=== PATIENT | male | born 1980 | race Caucasian/White ===

== ENCOUNTER 2016-07-28 05:26 | Emergency (ER) | payer OTHER ==
[~2016-07-28] VITALS: Ht 190.5 cm; Wt 111.1 kg
[2016-07-28] MEDS ORDERED: fentaNYL INJECTION 100 MCG/2 ML AMP IVP STA (05:33)
[2016-07-28] MEDS ORDERED: HYDR25TA4 PO (05:37)
[2016-07-28] MEDS ORDERED: FLUT9.9S NS (05:37)
[2016-07-28] MEDS ORDERED: GUAI600T43 PO (05:37)
[2016-07-28] MEDS ORDERED: LISI10TA2 PO (05:37)
[2016-07-28] MEDS ORDERED: BISO1TAB3 PO (05:37)
--- NOTE | 2016-07-28 05:40 | ED Fall/Injury ---
General Chief Complaint: Trauma-Non Activation Stated Complaint: FALL,L SHOULDER PAIN Nursing Triage Note: patient reports was walking outside of work and tripped on rope and landed on L outstreched arm. Patient reports L shoulder pain Source: patient Exam Limitations: no limitations (ALEXY BADILLO MD) History of Present Illness Time seen by provider: 05:25 Initial Comments Here by EMS with report of left shoulder pain. Patient was apparently closing a receiving door at [facility] and was walking backwards with the rope as he was closing the door and tripped over the rope. He fell and hit his left shoulder on metal shelving and then caught himself with his left hand. He immediately had severe left shoulder pain. Denies hitting his head. Denies loss of consciousness. He does report hitting his left knee but states that that is no problem at all and is not concerned about it. He has never fractured or dislocated his shoulder previously. Occurred: just prior to arrival Severity: moderate Injuries/Pain Location: upper extremity Context: tripped Loss of Consciousness: no loss of consciousness Modifying Factors: Worse With Movement Associated Symptoms (Fall): No Abdominal Pain, No Chest Pain, No Nausea/ Vomiting (ALEXY BADILLO MD) Allergies and Home Medications Allergies Coded Allergies: iodine (Verified Allergy, Unknown, 07/28/16) Home Medications Bisoprolol Fumarate/Hctz 1 Each Tablet, 1 EACH PO DAILY, (Reported) Fluticasone Propionate 9.9 Ml [place].susp, 9.9 ML NS, (Reported) Guaifenesin 600 Mg Tab.er.12h, 600 MG PO, (Reported) Hydrochlorothiazide 25 Mg Tablet, 25 MG PO, (Reported) Hydrocodone/Acetaminophen 1 Each Tablet, 1-2 EACH PO Q4H PRN for PAIN, #30 Prescribed by: HIPOLITO DOOLEY on 07/28/16 1131 Lisinopril 10 Mg Tablet, 10 MG PO DAILY, (Reported) Constitutional: see HPI, No chills, No fever Eyes: No Symptoms Reported Ears, Nose, Mouth, Throat: no symptoms reported Respiratory: no symptoms reported Cardiovascular: no symptoms reported Gastrointestinal: no symptoms reported Musculoskeletal: see HPI, joint pain, joint swelling, muscle pain Skin: no symptoms reported (ALEXY BADILLO MD) All Other Systems Reviewed Negative Unless Noted: Yes (ALEXY BADILLO MD) Past Atehyhd-Bnvzlg-Ixnmbr Hx Patient Social History Alcohol Use: Rarely Uses Recreational Drug Use: No Smoking Status: Never a Smoker Recent Foreign Travel: No Contact w/Someone Who Travel: No Recent Infectious Disease Expo: No Recent Hopitalizations: No (ALEXY BADILLO MD) Seasonal Allergies Seasonal Allergies: No (ALEXY BADILLO MD) Surgeries HX Surgeries: Yes (lithotripsy) (ALEXY BADILLO MD) Respiratory Hx Respiratory Disorders: No (ALEXY BADILLO MD) Cardiovascular Hx Cardiac Disorders: Yes Cardiac Disorders: Hypertension (ALEXY BADILLO MD) Neurological Hx Neurological Disorders: No (ALEXY BADILLO MD) Genitourinary Hx Genitourinary Disorders: Yes Genitourinary Disorders: Kidney Stones (ALEXY BADILLO MD) Gastrointestinal Hx Gastrointestinal Disorders: No (ALEXY BADILLO MD) Musculoskeletal Hx Musculoskeletal Disorders: No (ALEXY BADILLO MD) Endocrine Hx Endocrine Disorders: No (ALEXY BADILLO MD) HEENT HX ENT Disorders: No (ALEXY BADILLO MD) Cancer Hx Cancer: No (ALEXY BADILLO MD) Psychosocial Hx Psychiatric Problems: No (ALEXY BADILLO MD) Integumentary HX Skin/Integumentary Disorder: No (ALEXY BADILLO MD) Blood Transfusions Hx Blood Disorders: No (ALEXY BADILLO MD) Reviewed Nursing Assessment Reviewed/Agree w Nursing PMH: Yes (ALEXY BADILLO MD) Family Medical History Significant Family History: No Pertinent Family Hx (ALEXY BADILLO MD) Physical Exam Vital Signs Vital Sign - Last 12Hours 07/28/16 07/28/16 07/28/16 05:28 08:44 11:20 Temp 98.4 Pulse 71 Resp 18 B/P (MAP) 146/73 Pulse Ox 98 O2 Delivery Nasal Cannula O2 Flow Rate 2 (HIPOLITO DE LA CRUZ MD) Vital Signs Capillary Refill : Less Than 3 Seconds (ALEXY BADILLO MD) General Appearance: WD/WN, moderate distress (left shoulder pain) HEENT: PERRL/EOMI, pharynx normal Neck: non-tender, full range of motion, supple Cardiovascular: regular rate, rhythm, no murmur Respiratory: lungs clear, normal breath sounds Gastrointestinal: non tender, soft Back: normal inspection, no CVA tenderness, no vertebral tenderness Extremities: other (left shoulder with moderate to significant tenderness and deformity with the appearance of dislocation. No pain in the elbow, wrist or hand. Full range of motion of the hand but states it hurts at the area of the shoulder. Full range of motion of both legs without pain. Nontender to bilateral knees.) Neurologic/Psychiatric: no motor/sensory deficits, alert, oriented x 3, other ( distal sensation and circulation to the left hand intact) Skin: normal color, warm/dry (ALEXY BADILLO MD) Twan Coma Score Best Eye Response: (4) Open Spontaneously Best Verbal Response: (5) Oriented Best Motor Response: (6) Obeys Commands (ALEXY BADILLO MD) Splinting and Joint Reduction #1: Pre-Proc Neuro Vasc Exam: normal Post-Proc Neuro Vasc Exam: normal Joint Reduction Site: shoulder (L) Reduction Attempts: 3 Pre-Procedure NV Exam: Yes post joint reduction film: joint not reduced Progress In the initial reduction attempt was performed under sedation with fentanyl and Versed. Multiple attempts were made at the Legg maneuver with patient in a seated position. These attempts were unsuccessful. Patient was then placed in bed for another attempt. Splinting and Joint Reduction #2: Pre-Proc Neuro Vasc Exam: normal Post-Proc Neuro Vasc Exam: normal Joint Reduction Site: shoulder (L) Reduction Attempts: 3 Pre-Procedure NV Exam: Yes post joint reduction film: joint reduced Progress Patient was again sedated with fentanyl and Versed. 2 attempts at reduction with traction and countertraction were not successful. A third attempt accompanied by gentle pressure on the anterior humeral head by nursing staff resulted in reduction. Patient was placed in a shoulder immobilizer. (HIPOLITO DE LA CRUZ MD) Progress/Results/Core Measures Results/Orders My Orders Orders - HIPOLITO DE LA CRUZ MD Hydromorphone Injection (Dilaudid Inject (07/28/16 06:16) Hydromorphone Injection (Dilaudid Inject (07/28/16 06:52) Fentanyl Injection (Sublimaze Injection (07/28/16 07:30) Midazolam Injection (Versed Injection) (07/28/16 07:30) Wrist, Left, 3 Views Or More (07/28/16 07:28) Fentanyl Injection (Sublimaze Injection (07/28/16 09:00) Fentanyl Injection (Sublimaze Injection (07/28/16 09:30) Midazolam Injection (Versed Injection) (07/28/16 09:30) Shoulder, Left, 1 View (07/28/16 08:57) Midazolam Injection (Versed Injection) (07/28/16 11:15) Shoulder, Left, 2 Views (07/28/16 11:20) Midazolam Injection (Versed Injection) (07/28/16 11:45) Iv Push Full Stack Php Developer Ed (07/28/16 ) (HIPOLITO DE LA CRUZ MD) Medications Given in ED (HIPOLITO DE LA CRUZ MD) Vital Signs/I&O Vital Sign - Last 12Hours 07/28/16 07/28/16 07/28/16 07/28/16 05:28 08:44 11:20 12:09 Temp 98.4 Pulse 71 77 Resp 18 16 B/P (MAP) 146/73 Pulse Ox 98 98 O2 Delivery Nasal Cannula O2 Flow Rate 2 100 2 (HIPOLITO DE LA CRUZ MD) Blood Pressure Mean: 97 Progress Note : Progress Note Seen and evaluated. IV and left shoulder x-ray ordered. Fentanyl 75 g IV. 0625: Care transferred to Dr. Dooley. Pending x-ray. (ALEXY BADILLO MD) Progress Note : Progress Note Care of this patient was assumed from Dr. Badillo. There were multiple attempts made at reduction of the shoulder. Reduction was unsuccessful during the first round of sedation. Reduction was successful during the second round. On postreduction films there appeared to be a small bony fragment fractured off the rim of the left shoulder acetabulum. This was discussed with Dr. Santillan. (HIPOLITO DE LA CRUZ MD) Diagnostic Imaging Diagonstic Imaging: Xray Plain Films/CT/US/NM/MRI: other (left shoulder) Comments Left shoulder x-ray viewed by me and report reviewed. See report below: NAME: WILL BAIRD MED REC#: [id number] PT STATUS: REG ER : 1980 PHYSICIAN: ALEXY BADILLO MD ADMIT DATE: 07/28/16/ER Draft Date of Exam:07/28/16 SHOULDER, RIGHT, 3 VIEWS Clinical indication: Patient complains of left shoulder pain. Patient unable to move arm and having severe pain. Exam: Portable x-ray left shoulder. Comparison: None. Findings: There is anterior dislocation of the left shoulder seen with anterior and inferior position of the left humeral head in relation to the glenoid. There is no gross fracture seen. Impression: 1.: Left shoulder anterior dislocation. There is no gross fracture seen. Followup x-ray imaging post reduction is suggested. Dictated on workstation # [id number] Dict: 07/28/16 0656 Trans: 07/28/16 0703 DELLA [id number] Interpreted by: CARTER PERRY MD Diagonstic Imaging: Xray Plain Films/CT/US/NM/MRI: other (left shoulder) Comments shoulder x-ray repeated after first round of reduction attempts. X-ray viewed by me and report reviewed. See report below: NAME: WILL BAIRD MED REC#: [id number] PT STATUS: REG ER : 1980 PHYSICIAN: HIPOLITO DE LA CRUZ MD ADMIT DATE: 07/28/16/ER Signed Date of Exam: 07/28/16 SHOULDER, LEFT, 1 VIEW CLINICAL INDICATION: Patient with dislocated left shoulder. EXAM: Portable x-ray of the left shoulder, upright view. COMPARISON: X-ray of the left shoulder dated 07/28/2016. FINDINGS: Again seen dislocation of the left glenohumeral joint with the proximal left humeral head subluxed inferiorly. There is slight flattened appearance of the posterior lateral aspect of the proximal left femoral head which may represent Hill-Sachs deformity. IMPRESSION: 1. Persistent dislocation of the left shoulder. 2. Slight flattened appearance of the proximal left humeral head which may be related to Hill-Sachs deformity. Followup x-ray imaging postreduction of the left shoulder would help better evaluate. Dictated by: Dictated on workstation # [id number] Dict: 07/28/16 0923 Trans: 07/28/16 1158 JORGE [id number] Interpreted by: CARTER PERRY MD Electronically signed by:CARTER PERRY MD 07/28/16 1200 Diagonstic Imaging: Xray Plain Films/CT/US/NM/MRI: other (Left shoulder) Comments Postreduction film of left shoulder viewed by me and report reviewed. See report below: NAME: WILL BAIRD MED REC#: [id number] PT STATUS: REG ER : 1980 PHYSICIAN: HIPOLITO DE LA CRUZ MD ADMIT DATE: 07/28/16/ER Signed Date of Exam: 07/28/16 SHOULDER, LEFT, 2 VIEWS INDICATION: Postreduction of left shoulder. FINDINGS: 2 views of the left shoulder demonstrate interval reduction of the anterior dislocation. There is questionable bone fragment posterior to the region of the humeral neck. IMPRESSION: Interval reduction of the shoulder dislocation. There is an osseous fragment overlying the humeral neck, possible fracture. CRITICAL FINDING. Report was called to Dr. De La Cruz in ER @ [place], [place] @ 11:52 AM/jorge. Dictated by: Dictated on workstation # [id number] Dict: 07/28/16 1139 Trans: 07/28/16 1155 [id number] Interpreted by: MIRNA ORTIZ MD Electronically signed by:MIRNA ORTIZ MD 07/28/16 1158 Diagonstic Imaging: Xray Plain Films/CT/US/NM/MRI: other (Left wrist) Comments Left wrist x-ray viewed by me and report reviewed. See report below: NAME: WILL BAIRD MED REC#: [id number] PT STATUS: REG ER : 1980 PHYSICIAN: HIPOLITO DE LA CRUZ MD ADMIT DATE: 07/28/16/ER Signed Date of Exam: 07/28/16 WRIST, LEFT, 3 VIEWS OR MORE INDICATION: Tripped on a rope, landed on left outstretched arm at work. Left wrist pain. FINDINGS: 3 images of the left wrist demonstrate normal ossification. No fracture or dislocation is present. IMPRESSION: Normal left wrist. Dictated by: Dictated on workstation # [id number] Dict: 07/28/16 0844 Trans: 07/28/16 0849 [id number] Interpreted by: MIRNA ORTIZ MD Electronically signed by:MIRNA ORTIZ MD 07/28/16 0852 (HIPOLITO DE LA CRUZ MD) Departure Impression Impression: Primary Impression: Dislocation of left shoulder joint Additional Impressions: Fall from standing Left wrist pain Shoulder fracture Qualified Codes: S42.92XA - Fracture of left shoulder girdle, part unspecified , initial encounter for closed fracture Disposition: HOME, SELF-CARE Condition: Improved Departure-Patient Inst. Decision time for Depature: 11:15 (HIPOLITO DE LA CRUZ MD) Patient Instructions: Shoulder Dislocation Add. Discharge Instructions: Keep your left arm in the shoulder immobilizer is much as possible. You may remove the immobilizer if necessary for bathing and dressing but keep the arm in the same position. Do not reach or pull as this may cause recurrent dislocation. Follow-up with an orthopedic surgeon as soon as possible. You should check with your work comp provider to determine if a particular referral as necessary. You may take ibuprofen up to 800 mg every 8 hours as needed for pain. Add hydrocodone as prescribed for pain not controlled by ibuprofen. All discharge instructions reviewed with patient and/or family. Voiced understanding. Scripts Hydrocodone/Acetaminophen (Hydrocodon -Acetaminophen 5-325) 1 Each Tablet 1-2 EACH PO Q4H Y for PAIN, #30 TAB Prov: HIPOLITO DE LA CRUZ MD 07/28/16 ALEXY BADILLO MD Jul 28, 2016 05:40 HIPOLITO DE LA CRUZ MD Jul 28, 2016 07:22
[2016-07-28] MEDS ORDERED: HYDROmorphone (DILAUDID) 2 MG/ML VIAL IVP STA ×2 (06:16→06:52)
--- NOTE | 2016-07-28 07:03 | Diagnostic Imaging Report ---
Clinical indication: Patient complains of left shoulder pain. Patient unable to move arm and having severe pain. Exam: Portable x-ray left shoulder. Comparison: None. Findings: There is anterior dislocation of the left shoulder seen with anterior and inferior position of the left humeral head in relation to the glenoid. There is no gross fracture seen. Impression: 1.: Left shoulder anterior dislocation. There is no gross fracture seen. Followup x-ray imaging post reduction is suggested. Dictated by: Dictated on workstation # [id number]
[2016-07-28] MEDS ORDERED: MIDAZOLAM 5 MG/5 ML (VERSED) VIAL IVP ONE ×4 (07:30→11:45)
[2016-07-28] MEDS ORDERED: fentaNYL INJECTION 100 MCG/2 ML AMP IVP ONE ×2 (07:30→09:30)
--- NOTE | 2016-07-28 08:46 | Diagnostic Imaging Report ---
INDICATION: Tripped on a rope, landed on left outstretched arm at work. Left wrist pain. FINDINGS: 3 images of the left wrist demonstrate normal ossification. No fracture or dislocation is present. IMPRESSION: Normal left wrist. Dictated by: Dictated on workstation # [id number]
[2016-07-28] MEDS: fentaNYL INJECTION 100 MCG/2 ML AMP IVP PRN ×2 (08:53→11:13)
--- NOTE | 2016-07-28 09:28 | Diagnostic Imaging Report ---
CLINICAL INDICATION: Patient with dislocated left shoulder. EXAM: Portable x-ray of the left shoulder, upright view. COMPARISON: X-ray of the left shoulder dated 07/28/2016. FINDINGS: Again seen dislocation of the left glenohumeral joint with the proximal left humeral head subluxed inferiorly. There is slight flattened appearance of the posterior lateral aspect of the proximal left femoral head which may represent Hill-Sachs deformity. IMPRESSION: 1. Persistent dislocation of the left shoulder. 2. Slight flattened appearance of the proximal left humeral head which may be related to Hill-Sachs deformity. Followup x-ray imaging postreduction of the left shoulder would help better evaluate. Dictated by: Dictated on workstation # [id number]
[2016-07-28] MEDS ORDERED: HYDR-3812 PO (11:31)
--- NOTE | 2016-07-28 11:55 | Diagnostic Imaging Report ---
INDICATION: Postreduction of left shoulder. FINDINGS: 2 views of the left shoulder demonstrate interval reduction of the anterior dislocation. There is questionable bone fragment posterior to the region of the humeral neck. IMPRESSION: Interval reduction of the shoulder dislocation. There is an osseous fragment overlying the humeral neck, possible fracture. CRITICAL FINDING. Report was called to Dr. De La Cruz in ER @ [facility], [place] @ 11:52 AM/jorge. Dictated by: Dictated on workstation # [id number]
[2016-07-28 12:09] VITALS: BP 145/91
== END 2016-07-28 12:09 | disposition home or self-care (01) ==
LOC: ER 05:30
DX: S43.015A Anterior dislocation of left humerus, initial encounter (principal); Z79.899 Other long term (current) drug therapy; W18.09XA Striking against other object with subsequent fall, initial encounter; Y92.512 Supermarket, store or market as the place of occurrence of the external cause; Y99.0 Civilian activity done for income or pay
CPT/HCPCS: 23655; 73020; 73030; 73110; 93041; 96374; 96375; 96376

== ENCOUNTER 2017-08-14 04:47 | Emergency (ER) | payer OTHER ==
[~2017-08-14] VITALS: Ht 190.5 cm; Wt 111.1 kg
[~2017-08-14 04:47] MED LIST: ACHD5005 PO; BISO1TAB3 PO; FLUT9.9S NS; GUAI600T43 PO; HYDR25TA4 PO; LISI10TA2 PO
--- NOTE | 2017-08-14 05:09 | ED Integumentary General ---
General Chief Complaint: Laceration Stated Complaint: L HAND LAC Nursing Triage Note: PT HAS APPROX 5 CM LAC TO L HAND/THUMB FROM BOX KNIFE AT WORK. Source: patient Exam Limitations: no limitations History of Present Illness Date Seen by Provider: Aug 14, 2017 Time Seen by Provider: 04:50 Initial Comments Patient presents to the ER by private conveyance with a chief complaint that he was at work at [employer] using a box sorter knife in his right hand and lacerated the lateral side of his left thumb approximately 5 cm long. He says he is not really feeling any pain right now and it's bleeding quite a bit so they had rested up with some gauze and he came to the ER. He does not ever last time he had a tetanus shot. He says he still has full use of his thumb. He said that it grossed him out when he saw his muscle underneath. Allergies and Home Medications Allergies Coded Allergies: iodine (Verified Allergy, Unknown, 07/28/16) Home Medications Bisoprolol Fumarate/Hctz 1 Each Tablet, 1 EACH PO DAILY, (Reported) Hydrocodone Bit/Acetaminophen 1 Each Tablet, 1-2 EACH PO Q4H PRN for PAIN Prescribed by: HIPOLITO BETH on 07/28/16 1131 Lisinopril 10 Mg Tablet, 10 MG PO DAILY, (Reported) Patient Home Medication List Home Medication List Reviewed: Yes Constitutional: No chills, No diaphoresis EENTM: No ear discharge, No ear pain Respiratory: No cough, No short of breath Cardiovascular: No chest pain, No Hx of Intervention, No palpitations Gastrointestinal: No abdominal pain, No constipation, No diarrhea, No nausea, No vomiting Past Limdiaa-Jfmexx-Vztiqy Hx Patient Social History Alcohol Use: Denies Use Recreational Drug Use: No Smoking Status: Never a Smoker 2nd Hand Smoke Exposure: No Recent Foreign Travel: No Contact w/Someone Who Travel: No Recent Infectious Disease Expo: No Recent Hopitalizations: No Immunizations Up To Date Tetanus Booster (TDap): More than 5yrs Seasonal Allergies Seasonal Allergies: No Surgeries History of Surgeries: Yes (lithotripsy) Respiratory History of Respiratory Disorde: No Cardiovascular History of Cardiac Disorders: Yes Cardiac Disorders: Hypertension Neurological History of Neurological Disord: No Genitourinary Genitourinary Disorders: Kidney Stones Gastrointestinal History of Gastrointestinal Di: No Musculoskeletal History of Musculoskeletal Dis: No Endocrine History of Endocrine Disorders: No Cancer History of Cancer: No Psychosocial History of Psychiatric Problem: No Integumentary History of Skin or Integumenta: No Blood Transfusions History of Blood Disorders: No Family Medical History Significant Family History: No Pertinent Family Hx Physical Exam Vital Signs Vital Signs - First Documented 08/14/17 04:54 Temp 98.2 Pulse 85 Resp 16 B/P (MAP) 128/105 (113) Pulse Ox 99 Capillary Refill : Less Than 3 Seconds General Appearance: WD/WN, no apparent distress HEENT: PERRL/EOMI, pharynx normal Cardiovascular: normal peripheral pulses, regular rate, rhythm Respiratory: no respiratory distress, no accessory muscle use Extremities: other (good pulse and distal capillary refill to the laceration less than 3 seconds. He has full range of motion of his thumb.) Neurologic/Psychiatric: alert, oriented x 3 Skin: other (5 cm linear laceration through the dermis and subcutaneous.) Laceration Repair : Wound Location: Upper Extremities Other Wound Location Lateral/dorsal left thumb Wound Length (cm): 5 Wound's Depth, Shape: sub Q Wound Explored: clean Irrigated w/ Saline (ccs): 100 Betadine Prep?: No (chlorhexidine soap water) Anesthesia: 1% Lidocaine Volume Anesthetic (ccs): 9 Wound Debrided: minimal Suture: Ethlion Suture Size: 2-0 Number of Sutures: 9 Layer Closure?: 1 Sterile Dressing Applied?: Yes Progress Patient was pain-free at the beginning. Cleaned thoroughly with soap water chlorhexidine. Wound was infiltrated and a ring block fashion with 1% lidocaine with out epinephrine. When the patient was ascertained to be numb and then thoroughly explored and cleaned the wound and irrigated with chlorhexidine soap water. There is a just over the wound with a steady venous bleed that was sealed with a figure of 8 stitch 1. After that ate more simple interrupted sutures were placed to reapproximate the skin edges. The wound was hemostatic, cleaned thoroughly and the patient tolerated the procedure very well. Sterile gloves and sterile drapes were used. A sterile dressing was then applied with an compressive dressing per nursing. Progress/Results/Core Measures Results/Orders My Orders Orders - RADHA OTT Dipht,Pertglenn(Acell),Tet Adult (Boostrix (08/14/17 05:15) Ceftriaxone Injection (Rocephin Injectio (08/14/17 05:45) Lidocaine 1% Injection (Xylocaine 1% Inj (08/14/17 05:45) Vital Signs/I&O Vital Sign - Last 12Hours 08/14/17 04:54 Temp 98.2 Pulse 85 Resp 16 B/P (MAP) 128/105 (113) Pulse Ox 99 Blood Pressure Mean: 113 Progress Note : Time: 05:51 Progress Note Tetanus shot and a gram or Rocephin. We'll have him follow up some Keflex outpatient. Departure Impression Impression: Primary Impression: Laceration of thumb, left Qualified Codes: S61.012A - Laceration without foreign body of left thumb without damage to nail, initial encounter Disposition: HOME, SELF-CARE Condition: Improved Departure-Patient Inst. Decision time for Depature: 05:51 Referrals: NO,LOCAL PHYSICIAN (PCP/Family) Primary Care Physician Patient Instructions: Laceration Repair With Stitches (DC) Add. Discharge Instructions: Keep the wound clean with regular soap and water. Apply a thin layer of Vaseline over the skin edges just to keep the moistened between cleanings. Change the dressing it becomes soiled or at least once a day. It's okay to shower and allow soap water to run over the wound. If a stitch becomes displaced just apply pressure and raise your hand above the level of your heart until it stops bleeding. If your wound gets swollen or painful you can apply an ice pack for 20 minutes every 2 hours for the first 2-3 days. You can also use ibuprofen 800 mg every 8 hours as needed. In addition to that you can use Tylenol 1000 mg every 8 hours as needed. Return to care if the wound is getting swollen and red or your pain is uncontrollable. Return to the ER to have the stitches removed in 7-[address] administrator the antibiotics and take one capsule 4 times a day for the next 4 days. All discharge instructions reviewed with patient and/or family. Voiced understanding. Scripts Hydrocodone Bit/Acetaminophen (Hydrocodone/Acetaminophen 5/325mg Tablet) 1 Tab Tab 1 EACH PO Q6H Y for BREAKTHROUGH PAIN, #10 TAB 0 Refills Prov: RADHA OTT 08/14/17 Cephalexin (Cephalexin) 500 Mg Tablet 500 MG PO QIDACHS for 4 Days, #20 TAB 0 Refills Prov: RADHA OTT 08/14/17 Work/School Note: Work Release Form Date Seen in the Emergency Department: Aug 14, 2017 Return to Work: Aug 14, 2017 Restrictions: Need Release from Doctor Other Restrictions Listed Below: Do not use your thumb on the left hand for work until the stitches are out. RADHA OTT Aug 14, 2017 05:09
[2017-08-14] MEDS ORDERED: TETANUS,DIPTH,PERTUSS P/F (BOOSTRIX) 0.5 ML VIAL IM ONE (05:15)
[2017-08-14] MEDS ORDERED: cefTRIAXone 1 GM (ROCEPHIN) VIAL IM ONE (05:45)
[2017-08-14] MEDS ORDERED: LIDOCAINE 1% INJ 20 ML 20 ML VIAL INJ ONE (05:45)
[2017-08-14] MEDS ORDERED: CEPH500T PO (05:53)
[2017-08-14] MEDS ORDERED: ACHD5005 PO (05:54)
[2017-08-14 06:11] VITALS: BP 128/105
== END 2017-08-14 06:12 | disposition home or self-care (01) ==
LOC: EDUNIT# 04:47 → ER 04:50
DX: S61.012A Laceration without foreign body of left thumb without damage to nail, initial encounter (principal); I10 Essential (primary) hypertension; Z23 Encounter for immunization; Z87.442 Personal history of urinary calculi; Z91.041 Radiographic dye allergy status; W27.8XXA Contact with other nonpowered hand tool, initial encounter; Y92.89 Other specified places as the place of occurrence of the external cause
CPT/HCPCS: 12002; 90471; 90715; 96372

== ENCOUNTER 2017-08-22 10:14 | Emergency (ER) | payer OTHER ==
[~2017-08-22] VITALS: Ht 190.5 cm; Wt 115.7 kg
[~2017-08-22 10:14] MED LIST changes: +CEPH500T PO
[2017-08-22 10:49] VITALS: BP 104/66
[2017-08-22] MEDS ORDERED: SULF1TAB35 PO (10:59)
--- NOTE | 2017-08-22 10:59 | ED Suture Removal/Wound Check ---
Suture/Wound Re-check Suture Removal/Wound Recheck : Suture Removal/Wound Recheck: Sutures removed by , Sutures removed by RN Progress Physician was brought to the exam room to assess the wound as sutures were being removed. Wound appeared to be dehiscing upon removal of sutures. Patient is also concerned about erythema and some possible purulence at the distal end of the wound. Sutures were removed and Steri-Strips were applied to loosely approximate the wound in a nonocclusive fashion. Antibiotics were prescribed. General Appearance: WD/WN, no apparent distress Physical Exam Vital Signs Vital Signs - First Documented 08/22/17 08/22/17 10:35 10:49 Temp 98.5 Pulse 68 Resp 18 B/P (MAP) 104/66 Pulse Ox 95 O2 Delivery Room Air Capillary Refill : General Appearance: WD/WN, no apparent distress Extremities: other (wound opened when sutures were removed. The edges of the wound appeared to have not adhered. The distal portion of the wound had some subtle erythema and purulent appearing moisture. 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 Referrals: NO,LOCAL PHYSICIAN (PCP/Family) Primary Care Physician Patient Instructions: SUTURE REMOVAL - UNCOMPLICATED Add. Discharge Instructions: Complete your antibiotics as prescribed. Monitor for signs of worsening infection such as pus like drainage, increasing redness, increasing pain, increasing swelling, fever, etc. Return to care promptly if you notice these symptoms. Allow the Steri-Strips to slough off naturally. Do not attempt to peel them off. You may cut loose edges from the Steri-Strips with small scissors or fingernail clippers. Avoid submersion as much as possible. You may shower with the Steri-Strips on. Keep covered while active or in dirty environments. Your wound will take several weeks to completely heal. All discharge instructions reviewed with patient and/or family. Voiced understanding. Scripts Sulfamethoxazole/Trimethoprim (Bactrim Ds Tablet) 1 Each Tablet 1 EACH PO BID PRN, #14 TAB Prov: HIPOLITO HALE MD 08/22/17 HIPOLITO HALE MD Aug 22, 2017 10:59
== END 2017-08-22 11:04 | disposition home or self-care (01) ==
LOC: EDUNIT# 10:14 → ER 10:16
DX: T81.31XA Disruption of external operation (surgical) wound, not elsewhere classified, initial encounter (principal)